=== PATIENT | male | born 1975 | race Caucasian/White ===

== ENCOUNTER 2021-05-06 12:14 | Emergency (ER) | payer BC ==
[2021-05-06] MEDS ORDERED: Amoxicillin/Clavulanate K 875-125 MG Tab PO ONE ×2 (12:15→14:27)
[2021-05-06 12:42] VITALS: BP 117/61; PULSE 96
--- NOTE | 2021-05-06 14:07 | EDM.PDOC ---
ED HPI GENERAL MEDICAL PROBLEM - General Chief Complaint: General Stated Complaint: COVID FOR 2 WEEKS Time Seen by Provider: 05/06/21 13:00 Source of Information: Reports: Patient, RN, RN Notes Reviewed History Limitations: Reports: No Limitations - History of Present Illness INITIAL COMMENTS - FREE TEXT/NARRATIVE: Gwyn is a 45 y/o male who presents to the ED via personal vehicle with complaints of weakness, fever, hemoptysis, and cough. The patient states he tested positive for COVID 10 days ago following symptoms that began 14 days ago. He notes he was feeling well the last few days, but then began to fever again. His TMax today was 101, he notes he last took acetaminophen an hour prior to his arrival to this facility. He denies chest pain, palpitations, shortness of breath, dyspepsia, nausea, vomiting, or diarrhea. Generalized Pain Score (Numeric/FACES): 5 - Related Data Allergies Allergy/AdvReac Type Severity Reaction Status Date / Time No Known Allergies Allergy Verified 05/07/21 10:49 Home Meds: Home Meds Zolpidem [Ambien] 10 mg PO BEDTIME PRN 02/25/14 [History] Amoxicillin/Potassium Clav [Augmentin 875-125 Tablet] 1 tab PO BID 05/07/21 [History] Azithromycin [Zithromax] 250 mg PO DAILY 05/07/21 [History] dexAMETHasone [Decadron] 6 mg PO DAILY #5 tablet 05/11/21 [Rx] Past Medical History - Past Health History Medical/Surgical History: Denies Medical/Surgical History HEENT History: Reports: None Cardiovascular History: Reports: None Respiratory History: Reports: None Gastrointestinal History: Reports: None Genitourinary History: Reports: None Musculoskeletal History: Reports: None Neurological History: Reports: None Psychiatric History: Reports: None Endocrine/Metabolic History: Reports: None Hematologic History: Reports: None Immunologic History: Reports: None Oncologic (Cancer) History: Reports: None Dermatologic History: Reports: None - Infectious Disease History Infectious Disease History: Reports: None - Past Surgical History Head Surgeries/Procedures: Reports: None Social & Family History - Family History Family Medical History: Unobtainable - Tobacco Use Tobacco Use Status *Q: Never Tobacco User - Caffeine Use Caffeine Use: Reports: None - Recreational Drug Use Recreational Drug Use: No - Living Situation & Occupation Living situation: Reports: , with Spouse Occupation: Employed ED ROS GENERAL - Review of Systems Review Of Systems: Comprehensive ROS is negative, except as noted in HPI. ED EXAM, GENERAL - Physical Exam Exam: See Below Exam Limited By: No Limitations General Appearance: Alert, Other (Ill-appearing male) Eye Exam: Bilateral Eye: EOMI, Normal Inspection, PERRL (3mm) Ears: Normal External Exam, Normal Canal, Hearing Grossly Normal, Normal TMs Ear Exam: Bilateral Ear: Auricle Normal, Canal Normal, TM normal Nose: Normal Inspection, Normal Mucosa, No Blood Throat/Mouth: Normal Inspection, Normal Oropharynx, Normal Voice, No Airway Compromise Head: Atraumatic, Normocephalic Neck: Normal Inspection, Supple, Non-Tender, Full Range of Motion Respiratory/Chest: No Respiratory Distress, Lungs Clear, Normal Breath Sounds, No Accessory Muscle Use, Chest Non-Tender, Rhonchi (Diffuse). No: Crackles, Rales, Wheezing Cardiovascular: Normal Peripheral Pulses, Regular Rate, Rhythm, No Edema, No Gallop, No JVD, No Murmur, No Rub Peripheral Pulses: 2+: Radial (L), Radial (R) GI/Abdominal: Normal Bowel Sounds, Soft, No Distention, No Abnormal Bruit, No Mass, Pelvis Stable (Male) Exam: Deferred Rectal (Males) Exam: Deferred Back Exam: Normal Inspection, Full Range of Motion Extremities: Normal Inspection, Normal Range of Motion, Non-Tender, No Pedal Edema, Normal Capillary Refill Neurological: Alert, Oriented, CN II-XII Intact, Normal Cognition, Normal Gait, No Motor/Sensory Deficits Psychiatric: Normal Affect, Normal Mood Skin Exam: Warm, Intact, No Rash, Diaphoretic, Erythema (Flushed cheeks, bilaterally). No: Cyanosis, Jaundice, Mottled, Pallor Course - Vital Signs Last Recorded V/S: Last Vital Signs Temp 102.9 F H 05/06/21 15:27 Pulse 96 05/06/21 12:39 Resp 20 05/06/21 12:39 BP 117/61 05/06/21 12:39 Pulse Ox 96 05/06/21 12:39 - Orders/Labs/Meds Labs: Laboratory Tests 05/06/21 05/06/21 05/06/21 Range/Units 13:42 13:42 13:42 WBC 26.2 H* (5.0-10.0) 10^3/uL RBC 5.29 (4.6-6.2) 10^6/uL Hgb 16.1 (14.0-18.0) g/dL Hct 46.4 (40.0-54.0) % MCV 87.7 (80-100) fL MCH 30.4 (27.0-34.0) pg MCHC 34.7 (33.0-35.0) g/dL Plt Count 168 (150-450) 10^3/uL Neut % (Auto) 86.1 H (42.2-75.2) % Lymph % (Auto) 4.0 L (20.5-50.1) % Rice % (Auto) 9.7 H (2-8) % Eos % (Auto) 0.1 L (1.0-3.0) % Baso % (Auto) 0.1 (0.0-1.0) % D-Dimer, Quantitative 142 (0-400) ng/mL Sodium 138 (136-145) mmol/L Potassium 3.8 (3.5-5.1) mmol/L Chloride 100 (98-107) mmol/L Carbon Dioxide 28 (21-32) mmol/L Anion Gap 13.8 H (7-13) mEq/L BUN 18 (7-18) mg/dL Creatinine 1.18 (0.70-1.30) mg/dL Est Cr Clr Drug Dosing TNP Estimated GFR (MDRD) > 60 BUN/Creatinine Ratio 15.3 (No establ ref range) Glucose 111 H (70-99) mg/dL Lactic Acid (0.4-2.0) mmol/L Calcium 9.2 (8.5-10.1) mg/dL Magnesium 1.7 L (1.8-2.4) mg/dL Total Bilirubin 0.7 (0.2-1.0) mg/dL AST 21 (15-37) U/L ALT 51 (16-63) U/L Alkaline Phosphatase 94 (46-116) U/L Troponin I High Sens 11 (<=76) pg/mL C-Reactive Protein 2.9 H (0.0-0.9) mg/dL Total Protein 7.7 (6.4-8.2) g/dL Albumin 4.0 (3.4-5.0) g/dL Globulin 3.7 Albumin/Globulin Ratio 1.1 05/06/21 Range/Units 13:42 WBC (5.0-10.0) 10^3/uL RBC (4.6-6.2) 10^6/uL Hgb (14.0-18.0) g/dL Hct (40.0-54.0) % MCV (80-100) fL MCH (27.0-34.0) pg MCHC (33.0-35.0) g/dL Plt Count (150-450) 10^3/uL Neut % (Auto) (42.2-75.2) % Lymph % (Auto) (20.5-50.1) % Rice % (Auto) (2-8) % Eos % (Auto) (1.0-3.0) % Baso % (Auto) (0.0-1.0) % D-Dimer, Quantitative (0-400) ng/mL Sodium (136-145) mmol/L Potassium (3.5-5.1) mmol/L Chloride (98-107) mmol/L Carbon Dioxide (21-32) mmol/L Anion Gap (7-13) mEq/L BUN (7-18) mg/dL Creatinine (0.70-1.30) mg/dL Est Cr Clr Drug Dosing Estimated GFR (MDRD) BUN/Creatinine Ratio (No establ ref range) Glucose (70-99) mg/dL Lactic Acid 2.4 H* (0.4-2.0) mmol/L Calcium (8.5-10.1) mg/dL Magnesium (1.8-2.4) mg/dL Total Bilirubin (0.2-1.0) mg/dL AST (15-37) U/L ALT (16-63) U/L Alkaline Phosphatase (46-116) U/L Troponin I High Sens (<=76) pg/mL C-Reactive Protein (0.0-0.9) mg/dL Total Protein (6.4-8.2) g/dL Albumin (3.4-5.0) g/dL Globulin Albumin/Globulin Ratio Meds: Medications Discontinued Medications Generic Name Dose Route Start Last Admin Trade Name Freq PRN Reason Stop Dose Admin Acetaminophen 1,000 mg 05/06/21 15:26 05/06/21 15:27 Acetaminophen 500 Mg Tab PO 05/06/21 15:27 1,000 mg ONETIME ONE Administration Acetaminophen Confirm 05/06/21 15:26 Acetaminophen 500 Mg Tab Administered 05/06/21 15:27 Dose 1,000 mg .ROUTE .STK-MED ONE Amoxicillin/Clavulanate Potassium 1 tab 05/06/21 14:27 05/06/21 15:27 Amoxicillin/Clavulanate K 875-125 Mg Tab PO 05/06/21 14:28 1 tab ONETIME ONE Administration Amoxicillin/Clavulanate Potassium Confirm 05/06/21 16:52 Amoxicillin/Clavulanate K 875-125 Mg Tab Administered 05/06/21 16:53 Dose 2 tab .ROUTE .STK-MED ONE Amoxicillin/Clavulanate Potassium 1 tab 05/06/21 12:15 Amoxicillin/Clavulanate K 875-125 Mg Tab PO 05/06/21 12:16 .STK-MED ONE Azithromycin 500 mg/ Sodium 250 mls @ 250 mls/hr 05/06/21 14:28 05/06/21 15:26 Chloride IV 05/06/21 15:27 250 mls/hr ONETIME ONE Administration - Radiology Interpretation Free Text/Narrative:: [facility] Final Radiology Report Call: [phone] assistance Online chat: [email or web address] Name: GWYN MURRAY Age: 45Years M Date: 05/06/2021 SSN: -- : [id number] Study: CR CHEST 1V FRONTAL Requesting Physician: Kathia Escalera Images: 1 Addl Studies: Provided Clinical History: COVID +; Crackles to bilateral lobes Contrast: Contrast Medium: Contrast Amount: Contrast Method: CONFIDENTIALITY STATEMENT This report is intended only for use by the referring physician, and only in accordance with law. If you received this in error, call [phone]. Page 1 of 1 PROCEDURE INFORMATION: Exam: XR Chest Exam date and time: 05/06/2021 1:35 PM Age: 45 years old Clinical indication: Other: Crackles to bilateral lobes; Additional info: Covid +; Crackles to bilateral lobes TECHNIQUE: Imaging protocol: XR of the chest. Views: 1 view. COMPARISON: CR Chest 1V Frontal 02/25/2014 11:53 AM FINDINGS: Lungs: When compared to the previous examination, there is slight increase in airspace opacity in the periphery of the right lower lobe and also patchy airspace opacity in the left lower lobe. Findings are concerning for possible early/mild atypical pneumonia. There is no pulmonary edema. Pleural spaces: Unremarkable. No pleural effusion. No pneumothorax. Heart/Mediastinum: Unremarkable. No cardiomegaly. Bones/joints: Unremarkable. IMPRESSION: Mild multifocal pneumonia. Consider viral etiology. Thank you for allowing us to participate in the care of your patient. Dictated and Authenticated by: Chidi Davila MD 05/06/2021 2:41 PM Central Time ([place] & [place]) - Re-Assessments/Exams Free Text/Narrative Re-Assessment/Exam: 05/06/21 CXR obtained. Labs pending. WBC 26, blood cultures drawn. D-dimer WNL. Azithromycin 500mg IVPB and Augmentin 875/125mg PO administered. Acetaminophen administered for fever. Findings of examination, imaging, and lab work reviewed with patient. Will treat pneumonia with azithromycin and Augmentin. Supportive cares for pneumonia discussed. Patient instructed to follow up with PCP regarding today's visit. Red flag signs and symptoms which would warrant immediate reevaluation reviewed. Patient verbalized understanding and agreement with the plan of care. Departure - Departure Time of Disposition: 16:45 Disposition: Home, Self-Care 01 Condition: Fair Clinical Impression: Pneumonia due to COVID-19 virus, Bacterial pneumonia, unspecified - Discharge Information *PRESCRIPTION DRUG MONITORING PROGRAM REVIEWED*: Not Applicable *COPY OF PRESCRIPTION DRUG MONITORING REPORT IN PATIENT SSUHMA: Not Applicable Instructions: Community-Acquired Pneumonia, Adult Referrals: PCP,None [Primary Care Provider] - Forms: ED Department Discharge Additional Instructions: Rx: Augmentin Rx: azithromycin 1.) Take all of your antibiotics until gone, even as symptoms improve. 2.) Refrain from returning to work until you are 24 hours fever free. 3.) You may take ibuprofen (Motrin/Advil) 400-800mg every six hours, as pain and swelling persist. You may also take acetaminophen (Tylenol) 650-1000mg every six hours, as pain persists. You may stagger these medications so you are taking a dose every three hours. 4.) Eat small, snack like meals to avoid nausea. 5.) Drink small, frequent sips of water to stay hydrated.
[2021-05-06 14:15] LABS: ANION GAP 13.8 mEq/L (7-13); CHLORIDE,CL 100 mmol/L (98-107); SODIUM,NA 138 mmol/L (136-145)
[2021-05-06] MEDS ORDERED: Azithromycin 500 MG in Sodium Chloride 0.9% 250 ML IV ONE (14:28)
--- NOTE | 2021-05-06 14:41 | CR ---
PROCEDURE INFORMATION: Exam: XR Chest Exam date and time: 05/06/2021 1:35 PM Age: 45 years old Clinical indication: Other: Crackles to bilateral lobes; Additional info: Covid +; Crackles to bilateral lobes TECHNIQUE: Imaging protocol: XR of the chest. Views: 1 view. COMPARISON: CR Chest 1V Frontal 02/25/2014 11:53 AM FINDINGS: Lungs: When compared to the previous examination, there is slight increase in airspace opacity in the periphery of the right lower lobe and also patchy airspace opacity in the left lower lobe. Findings are concerning for possible early/mild atypical pneumonia. There is no pulmonary edema. Pleural spaces: Unremarkable. No pleural effusion. No pneumothorax. Heart/Mediastinum: Unremarkable. No cardiomegaly. Bones/joints: Unremarkable. IMPRESSION: Mild multifocal pneumonia. Consider viral etiology.
[2021-05-06] MEDS ORDERED: Acetaminophen 500 MG Tab PO ONE (15:26)
[2021-05-06] MEDS ORDERED: Acetaminophen 500 MG Tab ONE (15:26)
[2021-05-06] MEDS ORDERED: Amoxicillin/Clavulanate K 875-125 MG Tab ONE (16:52)
--- NOTE | 2021-05-17 04:24 | PCM.SN.2 ---
- Free Text/Narrative Note: 05/06/21 [facility] notified via lab of anaerobic culture positive from gram positive clusters in pairs and chains. [facility] contacted patient who states he continued to fever through the night with continued feelings of malaise. Discussed findings of blood cultures and need for IV antibiotics. Case discussed with Dr. Greenfield who kindly accepted patient as direct admission. Patient again contacted by magazine writer to confirm plan of care. Patient to present to this facility for direct admission [facility]. Patient verbalized understanding and agreement with the plan of care. Time Documentation
== END 2021-05-06 16:59 | disposition home or self-care (01) ==
LOC: DL.ED 12:14
DX: U07.1 COVID-19 (principal); J15.9 Unspecified bacterial pneumonia
CPT/HCPCS: 36415; 71045; 80053; 83605; 83735; 84484; 85025; 85379; 86140; 87040; 87077; 87186; 99283; 99285; A9270; J0456; J7050

== ENCOUNTER 2021-05-07 07:36 | Inpatient (IN) | payer BC ==
--- NOTE | 2021-05-07 10:43 | PCM.HP ---
H&P History of Present Illness - General Date of Service: 05/07/21 Admit Problem/Dx: COVID-19 infection Source of Information: Patient, Old Records, Provider, RN Notes Reviewed History Limitations: Reports: No Limitations - History of Present Illness Initial Comments - Free Text/Narative: This is a 45-year-old with no significant past medical history except for insomnia who comes in as a direct admit after he was diagnosed with bacteremia from yesterday's visit in the emergency department. According to him, has been battling COVID-19 infection since and he turned positive on the . He had a brief episode wherein he got better. However a couple of days prior to his visit yesterday in the emergency department, he developed onset of fever associated with chills, chest discomfort, hemoptysis, productive cough, pleuritic pain, as well as generalized malaise and body aches. Yesterday, he received initial treatment and was discharged home with antibiotics. Unfortunately his blood culture came back positive for gram-positive organism. So far he has no active respiratory symptoms. He is satting well on room air. He does not look septic. To note, he is [id number] vaccinated. He denies smoking cigarettes or marijuana. He does not chew tobacco products. He endorses no electronic vaping. He denies using illicit drugs. And he denies alcohol use. - Related Data Allergies/Adverse Reactions: Allergies Allergy/AdvReac Type Severity Reaction Status Date / Time No Known Allergies Allergy Verified 05/07/21 10:49 Home Medications: Home Meds Zolpidem [Ambien] 10 mg PO BEDTIME PRN 02/25/14 [History] Amoxicillin/Potassium Clav [Augmentin 875-125 Tablet] 1 tab PO BID 05/07/21 [History] Azithromycin [Zithromax] 250 mg PO DAILY 05/07/21 [History] Past Medical History - Past Health History Medical/Surgical History: Denies Medical/Surgical History HEENT History: Reports: None Cardiovascular History: Reports: None Respiratory History: Reports: None Gastrointestinal History: Reports: None Genitourinary History: Reports: None Musculoskeletal History: Reports: None Neurological History: Reports: None Psychiatric History: Reports: None Endocrine/Metabolic History: Reports: None Hematologic History: Reports: None Immunologic History: Reports: None Oncologic (Cancer) History: Reports: None Dermatologic History: Reports: None - Infectious Disease History Infectious Disease History: Reports: None - Past Surgical History Head Surgeries/Procedures: Reports: None Social & Family History - Family History Family Medical History: Unobtainable - Caffeine Use Caffeine Use: Reports: None - Living Situation & Occupation Living situation: Reports: , with Spouse Occupation: Employed H&P Review of Systems - Review of Systems: Review Of Systems: See Below General: Reports: Fever, Chills, Malaise, Weakness. Denies: Fatigue HEENT: Reports: Ear Pain, Headaches. Denies: Contact Lenses, Dysphasia, Eye Pain, Rhinitis, Post Nasal Drip, Sinus Congestion, Sore Throat Pulmonary: Reports: Shortness of Breath, Pleuritic Chest Pain, Cough, Sputum, Hemoptysis. Denies: Wheezing Cardiovascular: Reports: Lightheadedness. Denies: Palpitations, Edema, Syncope, Claudication, Other Gastrointestinal: Denies: Abdominal Pain, Constipation, Diarrhea, Nausea, Vomiting Genitourinary: Denies: Frequency, Burning Musculoskeletal: Denies: Shoulder Pain, Joint Pain, Muscle Pain Skin: Denies: Jaundice, Rash Psychiatric: Denies: Depression, Anxiety, Agitation, Hallucinations, Hallucinations (Auditory) Neurological: Reports: Weakness. Denies: Dizziness, Seizure, Difficulty Walking Hematologic/Lymphatic: Reports: No Symptoms Immunologic: Reports: No Symptoms Exam - Exam Exam: See Below - Exam Quality Assessment: DVT Prophylaxis. No: Supplemental Oxygen, Urinary Catheter General: Alert, Oriented, Cooperative HEENT: Conjunctiva Clear, EOMI, Hearing Intact, Nares Patent, Normal Nasal Septum, Pupils Equal, Pupils Reactive Neck: Supple, Trachea Midline Lungs: Clear to Auscultation, Normal Respiratory Effort Cardiovascular: Regular Rate, Regular Rhythm GI/Abdominal Exam: Normal Bowel Sounds, Soft, Non-Tender, No Organomegaly, No Distention, No Abnormal Bruit, No Mass (Male) Exam: Deferred Rectal (Males) Exam: Deferred Back Exam: Normal Inspection, Full Range of Motion Extremities: Normal Inspection, Normal Range of Motion, Non-Tender, No Pedal Edema, Normal Capillary Refill Peripheral Pulses: 2+: Dorsalis Pedis (L), Dorsalis Pedis (R) Skin: Warm, Dry, Intact Neuro Extensive - Mental Status: Oriented x3, Normal Cognition, Memory Intact Neuro Extensive - Motor, Sensory, Reflexes: CN II-XII Intact, Normal Gait Psychiatric: Alert, Normal Affect, Normal Mood Problem List Initiated/Reviewed/Updated: Yes Assessment/Plan Comment:: This is a 45-year-old with no significant past medical history except for insomnia who comes in as a direct admit after he was diagnosed with bacteremia from yesterday's visit in the emergency department. Assessment: Acute: Worsening COVID-19 infection; onset of symptoms 04/22/2001/04/2021; officially diagnosed with COVID-19 on 04/26/2021 Viral pneumonitis versus atypical pneumonia; chest x-ray shows bilateral pneumonia taken yesterday in ED Intermittent fever and chills likely related to COVID-19 infection Bacteremia with preliminary blood culture showing gram-positive organism General aches and malaise Leukocytosis with WBC as high as 26.2 with neutrophils count of 86.1 taken in ED yesterday Hyperglycemia with glucose of 111, carries no history of diabetes or glucose intolerance Lactic acidosis with initial lactic acid of 2.4 taken taken in ED yesterday Elevated CRP of 2.9 taking in ED yesterday Hypomagnesemia with magnesium of 1.7 taken in ED yesterday Chronic: Insomnia Plan: Admit to the unit with COVID-19 isolation protocol UA and sputum culture if not already done Empiric IV antibiotic with IV Levaquin 750 mg daily Routine a.m. labs Inflammatory markers Monitor for electrolytes abnormality Electrolyte replacement protocol Flutter valve and incentive spirometry as directed As needed decongestant/Atrovent Accu-Check AC with insulin sliding scale for hyperglycemia due to steroid use Regular diet Resume home meds once verified Patient will not benefit with remdesivir at this point as he is 15 days into his symptoms Actemra infusion is not indicated as patient is satting on room air Repeat blood culture in 2 to 3 days PT/OT when appropriate RT to assess and treat DVT prophylaxis: Lovenox 40 mg subcu daily GI prophylaxis: H2 camron Goal of treatment: Resolution of bacteremia Length of stay: Likely 96 hours or less CODE STATUS is full Critical care time spent: 30 mins
[2021-05-07] MEDS ORDERED: Acetaminophen/HYDROcodone 325-10 MG Tab PO PRN (10:48)
[2021-05-07] MEDS ORDERED: Promethazine 25 MG/ML SDV IM PRN (10:48)
[2021-05-07] MEDS ORDERED: Polyethylene Glycol 3350 Powder 17 GM Packet PO PRN (10:48)
[2021-05-07] MEDS ORDERED: HYDROmorphone 0.5 MG/0.5 ML Syringe IVPUSH PRN (10:48)
[2021-05-07] MEDS ORDERED: Albuterol/Ipratropium 3.0-0.5 MG/3 ML Neb Soln NEB PRN (10:48)
[2021-05-07] MEDS ORDERED: Ondansetron 4 MG/2 ML SDV IVPUSH PRN (10:48)
[2021-05-07] MEDS ORDERED: guaiFENesin/Dextromethorphan 100-10 MG/5 ML Soln 5 ML Cup PO PRN (10:54)
[2021-05-07] MEDS ORDERED: Benzonatate 100 MG Cap PO PRN (11:02)
[2021-05-07] MEDS ORDERED: 50% Dextrose in Water 50 ML Syringe IVPUSH PRN (11:38)
[2021-05-07] MEDS ORDERED: Glucagon,Human Recombinant 1 MG Vial IM PRN (11:38)
[2021-05-07] MEDS ORDERED: Insulin Lispro 100 Units/ML 3 ML Vial SUBCUT PRN (11:38)
[2021-05-07] MEDS ORDERED: Dexamethasone 4 MG/ML SDV IVPUSH ONE (12:00)
[2021-05-07] MEDS: Levofloxacin/Dextrose 5%-Water 750 MG in Premix Bag 1 BAG IV SCH (12:03)
[2021-05-07] MEDS: Acetaminophen 325 MG Tab PO PRN (20:40)
[2021-05-07] MEDS: Zolpidem 5 MG Tab PO PRN (20:40)
[2021-05-08 07:05] LABS: ANION GAP 14.1 mEq/L (7-13); CHLORIDE,CL 105 mmol/L (98-107); SODIUM,NA 139 mmol/L (136-145)
--- NOTE | 2021-05-08 07:22 | PCM.PN ---
- General Info Date of Service: 05/08/21 Admission Dx/Problem (Free Text): COVID-19 infection Subjective Update: No overnight acute issues. He is relatively well and has no new complaints. He has been afebrile since admission. His WBC is now down to 22.6 with a neutrophils of 84.6%. His glucose now is anywhere between teens to 140s. His repeat CRP today is much better at 24.7 from 44.2 yesterday. Chest x-ray taken this morning was read as atelectasis and increased opacification in the lingula and left lower lobe suspicious for pneumonia but without acute pulmonary edema. Functional Status: Reports: Pain Controlled, Tolerating Diet, Ambulating, Urinating, Incentive Spirometry. Denies: New Symptoms - Review of Systems General: Denies: Fever, Weakness, Fatigue, Malaise HEENT: Denies: Contact Lenses Pulmonary: Denies: Shortness of Breath, Pleuritic Chest Pain, Cough, Sputum, Wheezing Cardiovascular: Denies: Chest Pain, Dyspnea on Exertion, Lightheadedness Gastrointestinal: Denies: Abdominal Pain, Nausea, Vomiting Genitourinary: Denies: Dysuria, Frequency, Urgency Musculoskeletal: Denies: Neck Pain Skin: Reports: No Symptoms Neurological: Reports: Weakness. Denies: Confusion, Dizziness, Seizure, Difficulty Walking, Gait Disturbance Psychiatric: Reports: No Symptoms. Denies: Confusion - Patient Data Vitals - Most Recent: Last Vital Signs Temp 36.9 C 05/08/21 04:00 Pulse 76 05/08/21 04:00 Resp 18 05/08/21 04:00 BP 128/75 05/08/21 04:00 Pulse Ox 96 05/08/21 04:00 Weight - Most Recent: 80.739 kg Lab Results Last 24 Hours: Laboratory Results - last 24 hr 05/07/21 05/07/21 05/07/21 Range/Units 11:58 12:16 12:16 WBC (5.0-10.0) 10^3/uL RBC (4.6-6.2) 10^6/uL Hgb (14.0-18.0) g/dL Hct (40.0-54.0) % MCV (80-100) fL MCH (27.0-34.0) pg MCHC (33.0-35.0) g/dL Plt Count (150-450) 10^3/uL Neut % (Auto) (42.2-75.2) % Lymph % (Auto) (20.5-50.1) % [place] % (Auto) (2-8) % Eos % (Auto) (1.0-3.0) % Baso % (Auto) (0.0-1.0) % Add Manual Diff ESR 36 H (0-15) mm/hr D-Dimer, Quantitative (0-400) ng/mL POC Glucose 89 (70-99) mg/dL Magnesium 2.2 (1.8-2.4) mg/dL Ferritin (26-388) mg/mL Lactate Dehydrogenase 155 (85-227) U/L C-Reactive Protein 44.2 H (0.0-0.9) mg/dL 05/07/21 05/07/21 05/07/21 Range/Units 12:16 12:16 17:15 WBC (5.0-10.0) 10^3/uL RBC (4.6-6.2) 10^6/uL Hgb (14.0-18.0) g/dL Hct (40.0-54.0) % MCV (80-100) fL MCH (27.0-34.0) pg MCHC (33.0-35.0) g/dL Plt Count (150-450) 10^3/uL Neut % (Auto) (42.2-75.2) % Lymph % (Auto) (20.5-50.1) % [place] % (Auto) (2-8) % Eos % (Auto) (1.0-3.0) % Baso % (Auto) (0.0-1.0) % Add Manual Diff ESR (0-15) mm/hr D-Dimer, Quantitative 392 (0-400) ng/mL POC Glucose 141 H (70-99) mg/dL Magnesium (1.8-2.4) mg/dL Ferritin 1191 H (26-388) mg/mL Lactate Dehydrogenase (85-227) U/L C-Reactive Protein (0.0-0.9) mg/dL 05/08/21 Range/Units 06:25 WBC 22.6 H (5.0-10.0) 10^3/uL RBC 4.78 (4.6-6.2) 10^6/uL Hgb 14.3 D (14.0-18.0) g/dL Hct 42.2 (40.0-54.0) % MCV 88.3 (80-100) fL MCH 29.9 (27.0-34.0) pg MCHC 33.9 (33.0-35.0) g/dL Plt Count 175 (150-450) 10^3/uL Neut % (Auto) 84.6 H (42.2-75.2) % Lymph % (Auto) 6.9 L (20.5-50.1) % [place] % (Auto) 8.4 H (2-8) % Eos % (Auto) 0.0 L (1.0-3.0) % Baso % (Auto) 0.1 (0.0-1.0) % Add Manual Diff Yes ESR (0-15) mm/hr D-Dimer, Quantitative (0-400) ng/mL POC Glucose (70-99) mg/dL Magnesium (1.8-2.4) mg/dL Ferritin (26-388) mg/mL Lactate Dehydrogenase (85-227) U/L C-Reactive Protein (0.0-0.9) mg/dL Med Orders - Current: Current Medications Acetaminophen (Acetaminophen 325 Mg Tab) 650 mg PO Q4H PRN PRN Reason: Pain (Mild 1-3)/fever Last Admin: 05/07/21 20:40 Dose: 650 mg Documented by: Hydrocodone Bitart/Acetaminophen (Acetaminophen/Hydrocodone 325-10 Mg Tab) 0.5 tab PO Q4H PRN PRN Reason: Pain (moderate 4-6) Albuterol/Ipratropium (Albuterol/Ipratropium 3.0-0.5 Mg/3 Ml Neb Soln) 3 ml NEB Q4H PRN PRN Reason: shortness of breath/wheezing Benzonatate (Benzonatate 100 Mg Cap) 100 mg PO Q8H PRN PRN Reason: Cough, use first Dexamethasone (Dexamethasone 2 Mg Tab) 6 mg PO DAILY MARLY Stop: 05/17/21 09:01 Dextrose/Water (50% Dextrose In Water 50 Ml Syringe) 50 ml IVPUSH Q15M PRN PRN Reason: Hypoglycemia Glucagon (Glucagon,Human Recombinant 1 Mg Vial) 1 mg IM Q15M PRN PRN Reason: Hypoglycemia Guaifenesin/Phenylephrine HCl (Guaifenesin/Dextromethorphan 100-10 Mg/5 Ml Soln 5 Ml Cup) 10 ml PO Q6H PRN PRN Reason: Cough, use second Hydromorphone HCl (Hydromorphone 0.5 Mg/0.5 Ml Syringe) 0.5 mg IVPUSH Q2H PRN PRN Reason: Pain (severe 7-10) Levofloxacin/Dextrose 750 mg/ (Premix) 150 mls @ 100 mls/hr IV Q24H MARLY Last Infusion: 05/07/21 13:52 Dose: Infused Documented by: Insulin Human Lispro (Insulin Lispro 100 Units/Ml 3 Ml Vial) 0 unit SUBCUT TIDMEALS PRN; Protocol PRN Reason: Hyperglycemia Ondansetron HCl (Ondansetron 4 Mg/2 Ml Sdv) 4 mg IVPUSH Q6H PRN PRN Reason: Nausea/Vomiting, use first Polyethylene Glycol (Polyethylene Glycol 3350 Powder 17 Gm Packet) 17 gm PO DAILY PRN PRN Reason: Constipation, USE FIRST Promethazine HCl (Promethazine 25 Mg/Ml Sdv) 12.5 mg IM Q6H PRN PRN Reason: Nausea/Vomiting, use second Senna/Docusate Sodium (Docusate Sodium/Sennosides 50-8.6 Mg Tab) 1 tab PO BEDTIME PRN PRN Reason: Constipation Zolpidem Tartrate (Zolpidem 5 Mg Tab) 5 mg PO BEDTIME PRN PRN Reason: Sleep Last Admin: 05/07/21 20:40 Dose: 5 mg Documented by: Discontinued Medications Dexamethasone (Dexamethasone 4 Mg/Ml Sdv) 6 mg IVPUSH ONETIME ONE Stop: 05/07/21 12:01 Last Admin: 05/07/21 12:52 Dose: 6 mg Documented by: - Exam Quality Assessment: No: Supplemental Oxygen, Urine Catheter General: Alert, Oriented, Cooperative, No Acute Distress HEENT: Pupils Equal, Pupils Reactive, EOMI, Mucous Membr. Moist/[place] Neck: Supple Lungs: Normal Respiratory Effort, Decreased Breath Sounds Cardiovascular: Regular Rate, Regular Rhythm GI/Abdominal Exam: Normal Bowel Sounds, Soft, Non-Tender, No Organomegaly, No Distention, No Abnormal Bruit, No Mass (Male) Exam: Deferred Back Exam: Normal Inspection, Full Range of Motion Extremities: Normal Inspection, Normal Range of Motion, Non-Tender, No Pedal Edema, Normal Capillary Refill Peripheral Pulses: 2+: Dorsalis Pedis (L), Dorsalis Pedis (R) Skin: Warm, Dry, Intact Neurological: No New Focal Deficit, Normal Gait Psy/Mental Status: Alert, Normal Affect, Normal Mood - Patient Data Lab Results Last 24 hrs: Laboratory Results - last 24 hr 05/07/21 05/07/21 05/07/21 Range/Units 11:58 12:16 12:16 WBC (5.0-10.0) 10^3/uL RBC (4.6-6.2) 10^6/uL Hgb (14.0-18.0) g/dL Hct (40.0-54.0) % MCV (80-100) fL MCH (27.0-34.0) pg MCHC (33.0-35.0) g/dL Plt Count (150-450) 10^3/uL Neut % (Auto) (42.2-75.2) % Lymph % (Auto) (20.5-50.1) % [place] % (Auto) (2-8) % Eos % (Auto) (1.0-3.0) % Baso % (Auto) (0.0-1.0) % Add Manual Diff ESR 36 H (0-15) mm/hr D-Dimer, Quantitative (0-400) ng/mL POC Glucose 89 (70-99) mg/dL Magnesium 2.2 (1.8-2.4) mg/dL Ferritin (26-388) mg/mL Lactate Dehydrogenase 155 (85-227) U/L C-Reactive Protein 44.2 H (0.0-0.9) mg/dL 05/07/21 05/07/21 05/07/21 Range/Units 12:16 12:16 17:15 WBC (5.0-10.0) 10^3/uL RBC (4.6-6.2) 10^6/uL Hgb (14.0-18.0) g/dL Hct (40.0-54.0) % MCV (80-100) fL MCH (27.0-34.0) pg MCHC (33.0-35.0) g/dL Plt Count (150-450) 10^3/uL Neut % (Auto) (42.2-75.2) % Lymph % (Auto) (20.5-50.1) % [place] % (Auto) (2-8) % Eos % (Auto) (1.0-3.0) % Baso % (Auto) (0.0-1.0) % Add Manual Diff ESR (0-15) mm/hr D-Dimer, Quantitative 392 (0-400) ng/mL POC Glucose 141 H (70-99) mg/dL Magnesium (1.8-2.4) mg/dL Ferritin 1191 H (26-388) mg/mL Lactate Dehydrogenase (85-227) U/L C-Reactive Protein (0.0-0.9) mg/dL 05/08/21 Range/Units 06:25 WBC 22.6 H (5.0-10.0) 10^3/uL RBC 4.78 (4.6-6.2) 10^6/uL Hgb 14.3 D (14.0-18.0) g/dL Hct 42.2 (40.0-54.0) % MCV 88.3 (80-100) fL MCH 29.9 (27.0-34.0) pg MCHC 33.9 (33.0-35.0) g/dL Plt Count 175 (150-450) 10^3/uL Neut % (Auto) 84.6 H (42.2-75.2) % Lymph % (Auto) 6.9 L (20.5-50.1) % [place] % (Auto) 8.4 H (2-8) % Eos % (Auto) 0.0 L (1.0-3.0) % Baso % (Auto) 0.1 (0.0-1.0) % Add Manual Diff Yes ESR (0-15) mm/hr D-Dimer, Quantitative (0-400) ng/mL POC Glucose (70-99) mg/dL Magnesium (1.8-2.4) mg/dL Ferritin (26-388) mg/mL Lactate Dehydrogenase (85-227) U/L C-Reactive Protein (0.0-0.9) mg/dL Result Diagrams: 05/08/21 06:25 05/08/21 06:25 Sepsis Event Note - Evaluation Sepsis Screening Result: No Definite Risk - Focused Exam Vital Signs: Vital Signs Temp Pulse Resp BP Pulse Ox 05/08/21 04:00 36.9 C 76 18 128/75 96 05/08/21 00:00 36.8 C 84 18 118/72 94 L 05/07/21 20:00 37.3 C 96 20 125/68 94 L - Problem List Review Problem List Initiated/Reviewed/Updated: Yes - My Orders Last 24 Hours: My Active Orders 05/07/21 10:48 Patient Status [ADT] Routine Blood Glucose Check, Bedside [RC] TIDMEALS Height and Weight [RC] DAILY Oxygen Therapy [RC] PRN Up ad Mari [RC] ASDIRECTED VTE/DVT Education [RC] Vital Signs [RC] 00,04,08,12,16,20 Consult to Case Management/Social Sciences Research Scientist [CONS] Routine OT Evaluation and Treatment [CONS] Routine PT Evaluation and Treatment [CONS] Routine Respiratory Care Assess and Treatment [CONS] Routine CULTURE SPUTUM + SMEAR [RM] Stat Acetaminophen [TylenoL] 650 mg PO Q4H PRN Acetaminophen/HYDROcodone [[place] 325-10 MG] 0.5 tab PO Q4H PRN Albuterol/Ipratropium [DuoNeb 3.0-0.5 MG/3 ML] 3 ml NEB Q4H PRN HYDROmorphone [Dilaudid] 0.5 mg IVPUSH Q2H PRN Ondansetron [Zofran] 4 mg IVPUSH Q6H PRN Promethazine [Phenergan] 12.5 mg IM Q6H PRN polyethylene glycoL 3350 [MiraLAX] 17 gm PO DAILY PRN Resuscitation Status Routine 05/07/21 10:49 Intake and Output [RC] QSHIFT Sequential Compression Device [OM.PC] Per Unit Routine 05/07/21 10:50 Antiembolic Devices [RC] RT Aerosol Therapy [RC] ASDIRECTED 05/07/21 10:53 Flutter Valve Therapy [RT Chest Physiotherapy] [RC] ASDIRECTED Incentive Spirometry [RT Incentive Spirometry] [RC] Q2HWA 05/07/21 10:54 Dextromethorphan/guaiFENesin [Robitussin DM] 10 ml PO Q6H PRN 05/07/21 11:02 Benzonatate [Tessalon Perles] 100 mg PO Q8H PRN 05/07/21 11:38 Dextrose 50% in Water 50 ml IVPUSH Q15M PRN Glucagon,Human Recombinant [GlucaGen] 1 mg IM Q15M PRN Insulin Lispro [HumaLOG] See Protocol SUBCUT TIDMEALS PRN 05/07/21 Lunch Regular Diet [DIET] Levofloxacin/Dextrose 5%-Water [Levaquin in D5W 750 MG/150 ML] 750 mg Premix Bag 1 bag IV Q24H 05/07/21 12:16 QUANTIFERON TB PLUS [REF] Stat 05/07/21 13:45 CULTURE URINE [RM] Stat 05/07/21 20:00 Docusate Sodium/Sennosides [Senna Plus] 1 tab PO BEDTIME PRN 05/07/21 21:00 Zolpidem [Ambien] 5 mg PO BEDTIME PRN 05/08/21 06:00 Chest 1V Frontal [CR] Stat 05/08/21 06:25 BASIC METABOLIC PANEL,BMP [CHEM] AM C-REACTIVE PROTEIN [CHEM] Routine CBC WITH AUTO DIFF [HEME] AM MAGNESIUM [CHEM] AM MANUAL DIFFERENTIAL QA/NC [HEME] Routine 05/08/21 09:00 dexAMETHasone 6 mg PO DAILY 05/09/21 05:00 C-REACTIVE PROTEIN [REF] DAILY DD [D-DIMER QUANTITATIVE] [COAG] Routine FERRITIN [CHEM] Routine 05/09/21 05:11 BASIC METABOLIC PANEL,BMP [CHEM] AM CBC WITH AUTO DIFF [HEME] AM MAGNESIUM [CHEM] AM 05/10/21 05:00 C-REACTIVE PROTEIN [REF] DAILY 05/10/21 05:11 BASIC METABOLIC PANEL,BMP [CHEM] AM CBC WITH AUTO DIFF [HEME] AM MAGNESIUM [CHEM] AM 05/11/21 05:00 C-REACTIVE PROTEIN [REF] DAILY 05/11/21 05:11 BASIC METABOLIC PANEL,BMP [CHEM] AM CBC WITH AUTO DIFF [HEME] AM MAGNESIUM [CHEM] AM 05/12/21 05:00 C-REACTIVE PROTEIN [REF] DAILY 05/12/21 05:11 BASIC METABOLIC PANEL,BMP [CHEM] AM CBC WITH AUTO DIFF [HEME] AM MAGNESIUM [CHEM] AM 05/13/21 05:00 C-REACTIVE PROTEIN [REF] DAILY 05/13/21 05:11 BASIC METABOLIC PANEL,BMP [CHEM] AM CBC WITH AUTO DIFF [HEME] AM MAGNESIUM [CHEM] AM 05/14/21 05:00 C-REACTIVE PROTEIN [REF] DAILY 05/14/21 05:11 BASIC METABOLIC PANEL,BMP [CHEM] AM CBC WITH AUTO DIFF [HEME] AM MAGNESIUM [CHEM] AM - Assessment Assessment:: This is a 45-year-old with no significant past medical history except for insomnia who comes in as a direct admit after he was diagnosed with bacteremia from yesterday's visit in the emergency department. Assessment: Acute: Worsening COVID-19 infection; onset of symptoms 04/22/2001/04/2021; officially diagnosed with COVID-19 on 04/26/2021 Viral pneumonitis versus atypical pneumonia; chest x-ray shows bilateral pneumonia taken yesterday in ED; repeat chest x-ray today shows no worsening of pneumonia Bacteremia with preliminary blood culture showing gram-positive organism General aches and malaise improved Leukocytosis with WBC as high as 26.2 with neutrophils count of 86.1 taken in ED yesterday; improved at 22.6 Hyperglycemia with glucose of 111, carries no history of diabetes or glucose intolerance; now in the low teens to 140s Elevated CRP of 2.9 taking in ED; 44.2 yesterday now much improved at 24.7 Resolved: Intermittent fever and chills likely related to COVID-19 infection Lactic acidosis with initial lactic acid of 2.4 taken taken in ED yesterday Hypomagnesemia with magnesium of 1.7 taken in ED yesterday Chronic: Insomnia - Plan Plan:: Plan: Admit to the unit with COVID-19 isolation protocol Continue empiric IV antibiotic with IV Levaquin 750 mg daily Continue routine a.m. labs and inflammatory markers Monitor for electrolytes abnormality Electrolyte replacement protocol Flutter valve and incentive spirometry as directed As needed decongestant/Atrovent Accu-Check AC with insulin sliding scale for hyperglycemia due to steroid use Regular diet Repeat blood culture tomorrow RT to assess and treat DVT prophylaxis: Lovenox 40 mg subcu daily GI prophylaxis: H2 camron Goal of treatment: Resolution of bacteremia Length of stay: Likely 96 hours (Friday) Critical care time spent: 25 mins
[2021-05-08] MEDS: Dexamethasone 2 MG Tab PO SCH (08:02)
--- NOTE | 2021-05-08 09:09 | CR ---
PROCEDURE INFORMATION: Exam: XR Chest Exam date and time: 05/08/2021 8:04 AM Age: 45 years old Clinical indication: Shortness of breath and other: Covid-19 TECHNIQUE: Imaging protocol: XR of the chest. Views: 1 view. COMPARISON: AP chest 02/25/2014 CR Chest 1V Frontal 05/06/2021 1:35 PM FINDINGS: Lungs: Subsegmental atelectasis in right middle lobe and lingula. Asymmetric airspace opacification in lingula and possibly left lower lobe. Pleural spaces: Normal. Heart/Mediastinum: Normal heart and cardio-mediastinal silhouette. Vasculature: Normal pulmonary vessels and width of the vascular pedicle. Bones/joints: Intact and normally aligned. No suspicious lesion. IMPRESSION: Atelectasis and increased opacification in the lingula and left lower lobe suspicious for pneumonia. No acute pulmonary edema.
[2021-05-08] MEDS: Levofloxacin/Dextrose 5%-Water 750 MG in Premix Bag 1 BAG IV SCH (12:21)
[2021-05-08] MEDS: Zolpidem 5 MG Tab PO PRN (21:29)
[2021-05-08] MEDS: Acetaminophen 325 MG Tab PO PRN (21:29)
--- NOTE | 2021-05-09 07:08 | PCM.PN ---
- General Info Date of Service: 05/09/21 Admission Dx/Problem (Free Text): COVID-19 infection Subjective Update: He has an uneventful night. He feels. He reports no fever or chills. No shortness of breath but he still has occasional blood-tinged sputum. Became he is satting adequately on room air. His WBC is now down to 20.5 with neutrophils of 83.7%. His D-dimer is slightly up today at 775. His glucose is now in the teens. His ferritin is elevated at 08/20/2010 with a much improved CRP level of 10.1 from 24.7 yesterday. Vitals were otherwise stable. He has no other acute issues or complaints this morning. Functional Status: Reports: Pain Controlled, Tolerating Diet, Ambulating, Urinating, Incentive Spirometry. Denies: New Symptoms - Review of Systems General: Denies: Fever, Weakness, Fatigue, Malaise, Chills HEENT: Denies: Contact Lenses Pulmonary: Reports: Cough, Sputum, Wheezing. Denies: Shortness of Breath, Pleuritic Chest Pain, Hemoptysis Cardiovascular: Denies: Chest Pain, Palpitations, Dyspnea on Exertion, Edema, Lightheadedness Gastrointestinal: Reports: Nausea. Denies: Abdominal Pain, Vomiting Genitourinary: Reports: Dysuria. Denies: Frequency, Burning, Urgency Musculoskeletal: Reports: Joint Pain. Denies: Back Pain Skin: Reports: Bruising. Denies: Pruritis, Rash Neurological: Reports: Gait Disturbance. Denies: Confusion, Seizure, Difficulty Walking, Weakness Psychiatric: Denies: Depression, Anxiety, Agitation, Hallucinations, Suicidal Ideation, Homicidal Ideation - Patient Data Vitals - Most Recent: Last Vital Signs Temp 37.3 C 05/09/21 00:00 Pulse 76 05/09/21 00:00 Resp 16 05/09/21 00:00 BP 125/72 05/09/21 00:00 Pulse Ox 100 05/09/21 00:00 Weight - Most Recent: 80.377 kg I&O - Last 24 Hours: Intake & Output 05/08/21 05/09/21 05/09/21 22:59 06:59 14:59 Intake Total 500 100 Balance 500 100 Lab Results Last 24 Hours: Laboratory Results - last 24 hr 05/08/21 05/08/21 05/08/21 Range/Units 06:25 06:25 07:59 WBC (5.0-10.0) 10^3/uL RBC (4.6-6.2) 10^6/uL Hgb (14.0-18.0) g/dL Hct (40.0-54.0) % MCV (80-100) fL MCH (27.0-34.0) pg MCHC (33.0-35.0) g/dL Plt Count (150-450) 10^3/uL Neut % (Auto) (42.2-75.2) % Lymph % (Auto) (20.5-50.1) % [place] % (Auto) (2-8) % Eos % (Auto) (1.0-3.0) % Baso % (Auto) (0.0-1.0) % Neutrophils % (Manual) 78 H (42-75) % Band Neutrophils % 8 % Lymphocytes % (Manual) 7 L (20-50) % Monocytes % (Manual) 7 (2-8) % Sodium 139 (136-145) mmol/L Potassium 4.1 (3.5-5.1) mmol/L Chloride 105 (98-107) mmol/L Carbon Dioxide 24 (21-32) mmol/L Anion Gap 14.1 H (7-13) mEq/L BUN 11 (7-18) mg/dL Creatinine 0.79 (0.70-1.30) mg/dL Est Cr Clr Drug Dosing 112.72 mL/min Estimated GFR (MDRD) > 60 Glucose 140 H (70-99) mg/dL POC Glucose 113 H (70-99) mg/dL Calcium 8.9 (8.5-10.1) mg/dL Magnesium 2.0 (1.8-2.4) mg/dL C-Reactive Protein 24.7 H (0.0-0.9) mg/dL 05/08/21 05/08/21 05/09/21 Range/Units 12:12 17:01 06:35 WBC 20.5 H (5.0-10.0) 10^3/uL RBC 4.96 (4.6-6.2) 10^6/uL Hgb 14.8 (14.0-18.0) g/dL Hct 43.7 (40.0-54.0) % MCV 88.1 (80-100) fL MCH 29.8 (27.0-34.0) pg MCHC 33.9 (33.0-35.0) g/dL Plt Count 222 (150-450) 10^3/uL Neut % (Auto) 83.7 H (42.2-75.2) % Lymph % (Auto) 9.4 L (20.5-50.1) % [place] % (Auto) 6.8 (2-8) % Eos % (Auto) 0.0 L (1.0-3.0) % Baso % (Auto) 0.1 (0.0-1.0) % Neutrophils % (Manual) (42-75) % Band Neutrophils % % Lymphocytes % (Manual) (20-50) % Monocytes % (Manual) (2-8) % Sodium (136-145) mmol/L Potassium (3.5-5.1) mmol/L Chloride (98-107) mmol/L Carbon Dioxide (21-32) mmol/L Anion Gap (7-13) mEq/L BUN (7-18) mg/dL Creatinine (0.70-1.30) mg/dL Est Cr Clr Drug Dosing mL/min Estimated GFR (MDRD) Glucose (70-99) mg/dL POC Glucose 124 H 150 H (70-99) mg/dL Calcium (8.5-10.1) mg/dL Magnesium (1.8-2.4) mg/dL C-Reactive Protein (0.0-0.9) mg/dL [place] Results Last 24 Hours: Microbiology 05/07/21 13:45 Urine Culture - Final Urine, Clean Catch NO GROWTH AFTER 2 DAYS Med Orders - Current: Current Medications Acetaminophen (Acetaminophen 325 Mg Tab) 650 mg PO Q4H PRN PRN Reason: Pain (Mild 1-3)/fever Last Admin: 05/08/21 21:29 Dose: 650 mg Documented by: Hydrocodone Bitart/Acetaminophen (Acetaminophen/Hydrocodone 325-10 Mg Tab) 0.5 tab PO Q4H PRN PRN Reason: Pain (moderate 4-6) Albuterol/Ipratropium (Albuterol/Ipratropium 3.0-0.5 Mg/3 Ml Neb Soln) 3 ml NEB Q4H PRN PRN Reason: shortness of breath/wheezing Benzonatate (Benzonatate 100 Mg Cap) 100 mg PO Q8H PRN PRN Reason: Cough, use first Dexamethasone (Dexamethasone 2 Mg Tab) 6 mg PO DAILY MARLY Stop: 05/17/21 09:01 Last Admin: 05/08/21 08:02 Dose: 6 mg Documented by: Dextrose/Water (50% Dextrose In Water 50 Ml Syringe) 50 ml IVPUSH Q15M PRN PRN Reason: Hypoglycemia Glucagon (Glucagon,Human Recombinant 1 Mg Vial) 1 mg IM Q15M PRN PRN Reason: Hypoglycemia Guaifenesin/Phenylephrine HCl (Guaifenesin/Dextromethorphan 100-10 Mg/5 Ml Soln 5 Ml Cup) 10 ml PO Q6H PRN PRN Reason: Cough, use second Hydromorphone HCl (Hydromorphone 0.5 Mg/0.5 Ml Syringe) 0.5 mg IVPUSH Q2H PRN PRN Reason: Pain (severe 7-10) Levofloxacin/Dextrose 750 mg/ (Premix) 150 mls @ 100 mls/hr IV Q24H [facility] Last Admin: 05/08/21 12:21 Dose: 100 mls/hr Documented by: Insulin Human Lispro (Insulin Lispro 100 Units/Ml 3 Ml Vial) 0 unit SUBCUT TIDMEALS PRN; Protocol PRN Reason: Hyperglycemia Ondansetron HCl (Ondansetron 4 Mg/2 Ml Sdv) 4 mg IVPUSH Q6H PRN PRN Reason: Nausea/Vomiting, use first Polyethylene Glycol (Polyethylene Glycol 3350 Powder 17 Gm Packet) 17 gm PO DAILY PRN PRN Reason: Constipation, USE FIRST Promethazine HCl (Promethazine 25 Mg/Ml Sdv) 12.5 mg IM Q6H PRN PRN Reason: Nausea/Vomiting, use second Senna/Docusate Sodium (Docusate Sodium/Sennosides 50-8.6 Mg Tab) 1 tab PO BEDTIME PRN PRN Reason: Constipation Zolpidem Tartrate (Zolpidem 5 Mg Tab) 5 mg PO BEDTIME PRN PRN Reason: Sleep Last Admin: 05/08/21 21:29 Dose: 5 mg Documented by: Discontinued Medications Dexamethasone (Dexamethasone 4 Mg/Ml Sdv) 6 mg IVPUSH ONETIME ONE Stop: 05/07/21 12:01 Last Admin: 05/07/21 12:52 Dose: 6 mg Documented by: - Exam Quality Assessment: DVT Prophylaxis. No: Supplemental Oxygen, Urine Catheter General: Alert, Oriented, Cooperative, No Acute Distress HEENT: Pupils Equal, Pupils Reactive, EOMI, Mucous Membr. Moist/[place] Neck: Supple Lungs: Clear to Auscultation, Normal Respiratory Effort Cardiovascular: Regular Rate, Regular Rhythm GI/Abdominal Exam: Normal Bowel Sounds, Soft, Non-Tender, No Organomegaly, No Distention, No Abnormal Bruit (Male) Exam: Deferred Back Exam: Normal Inspection, Full Range of Motion Extremities: Normal Inspection, Normal Range of Motion, Non-Tender, No Pedal Edema, Normal Capillary Refill Peripheral Pulses: 2+: Dorsalis Pedis (L), Dorsalis Pedis (R) Skin: Warm, Dry, Intact Neurological: No New Focal Deficit, Normal Gait, Normal Speech Psy/Mental Status: Alert, Normal Affect, Normal Mood - Patient Data Lab Results Last 24 hrs: Laboratory Results - last 24 hr 05/08/21 05/08/21 05/08/21 Range/Units 06:25 06:25 07:59 WBC (5.0-10.0) 10^3/uL RBC (4.6-6.2) 10^6/uL Hgb (14.0-18.0) g/dL Hct (40.0-54.0) % MCV (80-100) fL MCH (27.0-34.0) pg MCHC (33.0-35.0) g/dL Plt Count (150-450) 10^3/uL Neut % (Auto) (42.2-75.2) % Lymph % (Auto) (20.5-50.1) % [place] % (Auto) (2-8) % Eos % (Auto) (1.0-3.0) % Baso % (Auto) (0.0-1.0) % Neutrophils % (Manual) 78 H (42-75) % Band Neutrophils % 8 % Lymphocytes % (Manual) 7 L (20-50) % Monocytes % (Manual) 7 (2-8) % Sodium 139 (136-145) mmol/L Potassium 4.1 (3.5-5.1) mmol/L Chloride 105 (98-107) mmol/L Carbon Dioxide 24 (21-32) mmol/L Anion Gap 14.1 H (7-13) mEq/L BUN 11 (7-18) mg/dL Creatinine 0.79 (0.70-1.30) mg/dL Est Cr Clr Drug Dosing 112.72 mL/min Estimated GFR (MDRD) > 60 Glucose 140 H (70-99) mg/dL POC Glucose 113 H (70-99) mg/dL Calcium 8.9 (8.5-10.1) mg/dL Magnesium 2.0 (1.8-2.4) mg/dL C-Reactive Protein 24.7 H (0.0-0.9) mg/dL 05/08/21 05/08/21 05/09/21 Range/Units 12:12 17:01 06:35 WBC 20.5 H (5.0-10.0) 10^3/uL RBC 4.96 (4.6-6.2) 10^6/uL Hgb 14.8 (14.0-18.0) g/dL Hct 43.7 (40.0-54.0) % MCV 88.1 (80-100) fL MCH 29.8 (27.0-34.0) pg MCHC 33.9 (33.0-35.0) g/dL Plt Count 222 (150-450) 10^3/uL Neut % (Auto) 83.7 H (42.2-75.2) % Lymph % (Auto) 9.4 L (20.5-50.1) % [place] % (Auto) 6.8 (2-8) % Eos % (Auto) 0.0 L (1.0-3.0) % Baso % (Auto) 0.1 (0.0-1.0) % Neutrophils % (Manual) (42-75) % Band Neutrophils % % Lymphocytes % (Manual) (20-50) % Monocytes % (Manual) (2-8) % Sodium (136-145) mmol/L Potassium (3.5-5.1) mmol/L Chloride (98-107) mmol/L Carbon Dioxide (21-32) mmol/L Anion Gap (7-13) mEq/L BUN (7-18) mg/dL Creatinine (0.70-1.30) mg/dL Est Cr Clr Drug Dosing mL/min Estimated GFR (MDRD) Glucose (70-99) mg/dL POC Glucose 124 H 150 H (70-99) mg/dL Calcium (8.5-10.1) mg/dL Magnesium (1.8-2.4) mg/dL C-Reactive Protein (0.0-0.9) mg/dL Result Diagrams: 05/10/21 06:10 05/10/21 06:10 [place] Results Last 24 hrs: Microbiology 05/07/21 13:45 Urine Culture - Final Urine, Clean Catch NO GROWTH AFTER 2 DAYS Sepsis Event Note - Evaluation Sepsis Screening Result: No Definite Risk - Focused Exam Vital Signs: Vital Signs Temp Pulse Resp BP Pulse Ox 05/09/21 00:00 37.3 C 76 16 125/72 100 05/08/21 20:00 37.1 C 64 18 132/70 95 - Problem List Review Problem List Initiated/Reviewed/Updated: Yes - My Orders Last 24 Hours: My Active Orders 05/08/21 09:00 dexAMETHasone 6 mg PO DAILY 05/09/21 05:11 Blood Culture x2 Reflex Set [OM.PC] PER UNIT ROUTINE 05/09/21 06:35 BASIC METABOLIC PANEL,BMP [CHEM] AM C-REACTIVE PROTEIN [CHEM] Routine CULTURE BLOOD [BC] Routine CULTURE BLOOD [BC] Routine DD [D-DIMER QUANTITATIVE] [COAG] Routine FERRITIN [CHEM] Routine MAGNESIUM [CHEM] AM 05/10/21 05:00 C-REACTIVE PROTEIN [REF] DAILY 05/10/21 05:11 BASIC METABOLIC PANEL,BMP [CHEM] AM CBC WITH AUTO DIFF [HEME] AM MAGNESIUM [CHEM] AM 05/11/21 05:00 C-REACTIVE PROTEIN [REF] DAILY 05/11/21 05:11 BASIC METABOLIC PANEL,BMP [CHEM] AM CBC WITH AUTO DIFF [HEME] AM MAGNESIUM [CHEM] AM 05/12/21 05:00 C-REACTIVE PROTEIN [REF] DAILY 05/12/21 05:11 BASIC METABOLIC PANEL,BMP [CHEM] AM CBC WITH AUTO DIFF [HEME] AM MAGNESIUM [CHEM] AM 05/13/21 05:00 C-REACTIVE PROTEIN [REF] DAILY 05/13/21 05:11 BASIC METABOLIC PANEL,BMP [CHEM] AM CBC WITH AUTO DIFF [HEME] AM MAGNESIUM [CHEM] AM 05/14/21 05:00 C-REACTIVE PROTEIN [REF] DAILY 05/14/21 05:11 BASIC METABOLIC PANEL,BMP [CHEM] AM CBC WITH AUTO DIFF [HEME] AM MAGNESIUM [CHEM] AM - Assessment Assessment:: This is a 45-year-old with no significant past medical history except for insomnia who comes in as a direct admit after he was diagnosed with bacteremia from yesterday's visit in the emergency department. Assessment: Acute: Worsening COVID-19 infection; onset of symptoms 04/22/2001/04/2021; officially diagnosed with COVID-19 on 04/26/2021 Viral pneumonitis versus atypical pneumonia; chest x-ray shows bilateral pneumonia taken yesterday in ED; repeat chest x-ray taken on 05/08/2021 shows no worsening of pneumonia Bacteremia with preliminary blood culture showing gram-positive organism Leukocytosis with WBC as high as 26.2 with neutrophils count of 86.1 taken in ED yesterday; continues to improve now with WBC at 12.5 and neutrophils count of 83.7% Hyperglycemia with glucose of 111, carries no history of diabetes or glucose intolerance; now in the low to mid teens Elevated CRP of 44.2, yesterday 24.7; continues to improve now at 10.1 Resolved: Intermittent fever and chills likely related to COVID-19 infection Lactic acidosis with initial lactic acid of 2.4 taken taken in ED yesterday Hypomagnesemia with magnesium of 1.7 taken in ED yesterday General aches and malaise Chronic: Insomnia - Plan Plan:: Plan: Continue current treatment with IV 750 mg Levaquin day #3 Continue routine a.m. labs and inflammatory markers Monitor for electrolytes abnormality Electrolyte replacement protocol Flutter valve and incentive spirometry as directed As needed decongestant/Atrovent Accu-Check AC with insulin sliding scale for hyperglycemia due to steroid use Regular diet Repeat blood culture today RT to assess and treat DVT prophylaxis: Lovenox 40 mg subcu daily GI prophylaxis: H2 camron Goal of treatment: Resolution of bacteremia Transfer to medical floor Prognosis is good Length of stay: Likely 96 hours (Friday)
[2021-05-09 07:12] LABS: ANION GAP 14.2 mEq/L (7-13); CHLORIDE,CL 103 mmol/L (98-107); SODIUM,NA 139 mmol/L (136-145)
[2021-05-09] MEDS: Dexamethasone 2 MG Tab PO SCH (10:06)
[2021-05-09] MEDS: Enoxaparin 40 MG/0.4 ML Syringe SUBCUT SCH (10:07)
[2021-05-09] MEDS: Levofloxacin/Dextrose 5%-Water 750 MG in Premix Bag 1 BAG IV SCH (12:39)
[2021-05-09] MEDS: Acetaminophen 325 MG Tab PO PRN (21:02)
[2021-05-09] MEDS: Zolpidem 5 MG Tab PO PRN (21:04)
--- NOTE | 2021-05-10 07:02 | PCM.PN ---
- General Info Date of Service: 05/10/21 Admission Dx/Problem (Free Text): COVID-19 infection Subjective Update: He continues to feel better. However last night he had an episode when he had night sweats. He remained symptomatic satting adequately. He is coughing up less phlegm and now with blood-tinged sputum. He is afebrile. His WBC slightly down to 19.7 with neutrophils of 79.4%. His glucose is down into the low low 100s. His CRP is much improved to 4.2 from 44.2 on admission. So far his repeat blood cultures in 24 hours. Functional Status: Reports: Pain Controlled, Tolerating Diet, Ambulating, Urinating, Incentive Spirometry. Denies: New Symptoms - Review of Systems General: Denies: Fever, Weakness, Fatigue, Malaise, Chills HEENT: Denies: Contact Lenses Pulmonary: Reports: Cough, Sputum. Denies: Shortness of Breath Cardiovascular: Denies: Chest Pain, Dyspnea on Exertion, Lightheadedness Gastrointestinal: Denies: Abdominal Pain, Nausea, Vomiting Genitourinary: Denies: Frequency, Burning Musculoskeletal: Denies: Neck Pain, Arm Pain, Back Pain, Joint Pain Skin: Denies: Bruising, Pruritis, Rash Neurological: Denies: Confusion, Difficulty Walking, Weakness, Gait Disturbance Psychiatric: Denies: Depression, Anxiety, Hallucinations, Homicidal Ideation - Patient Data Vitals - Most Recent: Last Vital Signs Temp 36.5 C 05/10/21 04:00 Pulse 61 05/10/21 04:00 Resp 18 05/10/21 04:00 BP 123/85 05/10/21 04:00 Pulse Ox 98 05/10/21 04:00 Weight - Most Recent: 80.377 kg I&O - Last 24 Hours: Intake & Output 05/09/21 05/10/21 05/10/21 22:59 06:59 14:59 Intake Total 510 100 Balance 510 100 Lab Results Last 24 Hours: Laboratory Results - last 24 hr 05/09/21 05/09/21 05/09/21 Range/Units 06:35 06:35 06:35 WBC 20.5 H (5.0-10.0) 10^3/uL RBC 4.96 (4.6-6.2) 10^6/uL Hgb 14.8 (14.0-18.0) g/dL Hct 43.7 (40.0-54.0) % MCV 88.1 (80-100) fL MCH 29.8 (27.0-34.0) pg MCHC 33.9 (33.0-35.0) g/dL Plt Count 222 (150-450) 10^3/uL Neut % (Auto) 83.7 H (42.2-75.2) % Lymph % (Auto) 9.4 L (20.5-50.1) % [place] % (Auto) 6.8 (2-8) % Eos % (Auto) 0.0 L (1.0-3.0) % Baso % (Auto) 0.1 (0.0-1.0) % D-Dimer, Quantitative 775 H (0-400) ng/mL Sodium 139 (136-145) mmol/L Potassium 4.2 (3.5-5.1) mmol/L Chloride 103 (98-107) mmol/L Carbon Dioxide 26 (21-32) mmol/L Anion Gap 14.2 H (7-13) mEq/L BUN 14 (7-18) mg/dL Creatinine 0.76 (0.70-1.30) mg/dL Est Cr Clr Drug Dosing 117.17 mL/min Estimated GFR (MDRD) > 60 Glucose 117 H (70-99) mg/dL POC Glucose (70-99) mg/dL Calcium 9.1 (8.5-10.1) mg/dL Magnesium 1.9 (1.8-2.4) mg/dL Ferritin (26-388) mg/mL C-Reactive Protein 10.1 H (0.0-0.9) mg/dL 05/09/21 05/09/21 05/09/21 Range/Units 06:35 07:30 12:01 WBC (5.0-10.0) 10^3/uL RBC (4.6-6.2) 10^6/uL Hgb (14.0-18.0) g/dL Hct (40.0-54.0) % MCV (80-100) fL MCH (27.0-34.0) pg MCHC (33.0-35.0) g/dL Plt Count (150-450) 10^3/uL Neut % (Auto) (42.2-75.2) % Lymph % (Auto) (20.5-50.1) % [place] % (Auto) (2-8) % Eos % (Auto) (1.0-3.0) % Baso % (Auto) (0.0-1.0) % D-Dimer, Quantitative (0-400) ng/mL Sodium (136-145) mmol/L Potassium (3.5-5.1) mmol/L Chloride (98-107) mmol/L Carbon Dioxide (21-32) mmol/L Anion Gap (7-13) mEq/L BUN (7-18) mg/dL Creatinine (0.70-1.30) mg/dL Est Cr Clr Drug Dosing mL/min Estimated GFR (MDRD) Glucose (70-99) mg/dL POC Glucose 112 H 129 H (70-99) mg/dL Calcium (8.5-10.1) mg/dL Magnesium (1.8-2.4) mg/dL Ferritin 1311 H (26-388) mg/mL C-Reactive Protein (0.0-0.9) mg/dL 05/09/21 Range/Units 16:42 WBC (5.0-10.0) 10^3/uL RBC (4.6-6.2) 10^6/uL Hgb (14.0-18.0) g/dL Hct (40.0-54.0) % MCV (80-100) fL MCH (27.0-34.0) pg MCHC (33.0-35.0) g/dL Plt Count (150-450) 10^3/uL Neut % (Auto) (42.2-75.2) % Lymph % (Auto) (20.5-50.1) % [place] % (Auto) (2-8) % Eos % (Auto) (1.0-3.0) % Baso % (Auto) (0.0-1.0) % D-Dimer, Quantitative (0-400) ng/mL Sodium (136-145) mmol/L Potassium (3.5-5.1) mmol/L Chloride (98-107) mmol/L Carbon Dioxide (21-32) mmol/L Anion Gap (7-13) mEq/L BUN (7-18) mg/dL Creatinine (0.70-1.30) mg/dL Est Cr Clr Drug Dosing mL/min Estimated GFR (MDRD) Glucose (70-99) mg/dL POC Glucose 132 H (70-99) mg/dL Calcium (8.5-10.1) mg/dL Magnesium (1.8-2.4) mg/dL Ferritin (26-388) mg/mL C-Reactive Protein (0.0-0.9) mg/dL [place] Results Last 24 Hours: Microbiology 05/09/21 06:35 Aerobic Blood Culture - Preliminary Blood - Arm, Right NO GROWTH AFTER 1 DAY Anaerobic Blood Culture - Preliminary NO GROWTH AFTER 1 DAY 05/09/21 06:35 Aerobic Blood Culture - Preliminary Blood - Arm, Left NO GROWTH AFTER 1 DAY Anaerobic Blood Culture - Preliminary NO GROWTH AFTER 1 DAY 05/07/21 13:45 Urine Culture - Final Urine, Clean Catch NO GROWTH AFTER 2 DAYS Med Orders - Current: Current Medications Acetaminophen (Acetaminophen 325 Mg Tab) 650 mg PO Q4H PRN PRN Reason: Pain (Mild 1-3)/fever Last Admin: 05/09/21 21:02 Dose: 650 mg Documented by: Hydrocodone Bitart/Acetaminophen (Acetaminophen/Hydrocodone 325-10 Mg Tab) 0.5 tab PO Q4H PRN PRN Reason: Pain (moderate 4-6) Albuterol/Ipratropium (Albuterol/Ipratropium 3.0-0.5 Mg/3 Ml Neb Soln) 3 ml NEB Q4H PRN PRN Reason: shortness of breath/wheezing Benzonatate (Benzonatate 100 Mg Cap) 100 mg PO Q8H PRN PRN Reason: Cough, use first Dexamethasone (Dexamethasone 2 Mg Tab) 6 mg PO DAILY [facility] Stop: 05/17/21 09:01 Last Admin: 05/09/21 10:06 Dose: 6 mg Documented by: Dextrose/Water (50% Dextrose In Water 50 Ml Syringe) 50 ml IVPUSH Q15M PRN PRN Reason: Hypoglycemia Enoxaparin Sodium (Enoxaparin 40 Mg/0.4 Ml Syringe) 40 mg SUBCUT DAILY [facility] Last Admin: 05/09/21 10:07 Dose: 40 mg Documented by: Glucagon (Glucagon,Human Recombinant 1 Mg Vial) 1 mg IM Q15M PRN PRN Reason: Hypoglycemia Guaifenesin/Phenylephrine HCl (Guaifenesin/Dextromethorphan 100-10 Mg/5 Ml Soln 5 Ml Cup) 10 ml PO Q6H PRN PRN Reason: Cough, use second Hydromorphone HCl (Hydromorphone 0.5 Mg/0.5 Ml Syringe) 0.5 mg IVPUSH Q2H PRN PRN Reason: Pain (severe 7-10) Levofloxacin/Dextrose 750 mg/ (Premix) 150 mls @ 100 mls/hr IV Q24H [facility] Last Infusion: 05/09/21 14:10 Dose: Infused Documented by: Insulin Human Lispro (Insulin Lispro 100 Units/Ml 3 Ml Vial) 0 unit SUBCUT TIDMEALS PRN; Protocol PRN Reason: Hyperglycemia Ondansetron HCl (Ondansetron 4 Mg/2 Ml Sdv) 4 mg IVPUSH Q6H PRN PRN Reason: Nausea/Vomiting, use first Polyethylene Glycol (Polyethylene Glycol 3350 Powder 17 Gm Packet) 17 gm PO DAILY PRN PRN Reason: Constipation, USE FIRST Promethazine HCl (Promethazine 25 Mg/Ml Sdv) 12.5 mg IM Q6H PRN PRN Reason: Nausea/Vomiting, use second Senna/Docusate Sodium (Docusate Sodium/Sennosides 50-8.6 Mg Tab) 1 tab PO BEDTIME PRN PRN Reason: Constipation Zolpidem Tartrate (Zolpidem 5 Mg Tab) 5 mg PO BEDTIME PRN PRN Reason: Sleep Last Admin: 05/09/21 21:04 Dose: 5 mg Documented by: Discontinued Medications Dexamethasone (Dexamethasone 4 Mg/Ml Sdv) 6 mg IVPUSH ONETIME ONE Stop: 05/07/21 12:01 Last Admin: 05/07/21 12:52 Dose: 6 mg Documented by: - Exam Quality Assessment: Supplemental Oxygen, DVT Prophylaxis. No: Urine Catheter, Skin Breakdown General: Alert, Oriented, Cooperative, No Acute Distress HEENT: Pupils Equal, Pupils Reactive, EOMI, Mucous Membr. Moist/[place] Neck: Supple Lungs: Normal Respiratory Effort, Decreased Breath Sounds Cardiovascular: Regular Rate, Regular Rhythm GI/Abdominal Exam: Normal Bowel Sounds, Soft, Non-Tender, No Organomegaly, No Distention, No Abnormal Bruit, No Mass (Male) Exam: Deferred Back Exam: Normal Inspection, Decreased Range of Motion Extremities: Normal Inspection, Normal Range of Motion, Non-Tender, No Pedal Edema, Normal Capillary Refill Peripheral Pulses: 2+: Dorsalis Pedis (L), Dorsalis Pedis (R) Skin: Warm, Dry, Intact Neurological: No New Focal Deficit Psy/Mental Status: Alert, Normal Affect, Normal Mood - Patient Data Lab Results Last 24 hrs: Laboratory Results - last 24 hr 05/09/21 05/09/21 05/09/21 Range/Units 06:35 06:35 06:35 WBC 20.5 H (5.0-10.0) 10^3/uL RBC 4.96 (4.6-6.2) 10^6/uL Hgb 14.8 (14.0-18.0) g/dL Hct 43.7 (40.0-54.0) % MCV 88.1 (80-100) fL MCH 29.8 (27.0-34.0) pg MCHC 33.9 (33.0-35.0) g/dL Plt Count 222 (150-450) 10^3/uL Neut % (Auto) 83.7 H (42.2-75.2) % Lymph % (Auto) 9.4 L (20.5-50.1) % [place]field % (Auto) 6.8 (2-8) % Eos % (Auto) 0.0 L (1.0-3.0) % Baso % (Auto) 0.1 (0.0-1.0) % D-Dimer, Quantitative 775 H (0-400) ng/mL Sodium 139 (136-145) mmol/L Potassium 4.2 (3.5-5.1) mmol/L Chloride 103 (98-107) mmol/L Carbon Dioxide 26 (21-32) mmol/L Anion Gap 14.2 H (7-13) mEq/L BUN 14 (7-18) mg/dL Creatinine 0.76 (0.70-1.30) mg/dL Est Cr Clr Drug Dosing 117.17 mL/min Estimated GFR (MDRD) > 60 Glucose 117 H (70-99) mg/dL POC Glucose (70-99) mg/dL Calcium 9.1 (8.5-10.1) mg/dL Magnesium 1.9 (1.8-2.4) mg/dL Ferritin (26-388) mg/mL C-Reactive Protein 10.1 H (0.0-0.9) mg/dL 05/09/21 05/09/21 05/09/21 Range/Units 06:35 07:30 12:01 WBC (5.0-10.0) 10^3/uL RBC (4.6-6.2) 10^6/uL Hgb (14.0-18.0) g/dL Hct (40.0-54.0) % MCV (80-100) fL MCH (27.0-34.0) pg MCHC (33.0-35.0) g/dL Plt Count (150-450) 10^3/uL Neut % (Auto) (42.2-75.2) % Lymph % (Auto) (20.5-50.1) % [place]field % (Auto) (2-8) % Eos % (Auto) (1.0-3.0) % Baso % (Auto) (0.0-1.0) % D-Dimer, Quantitative (0-400) ng/mL Sodium (136-145) mmol/L Potassium (3.5-5.1) mmol/L Chloride (98-107) mmol/L Carbon Dioxide (21-32) mmol/L Anion Gap (7-13) mEq/L BUN (7-18) mg/dL Creatinine (0.70-1.30) mg/dL Est Cr Clr Drug Dosing mL/min Estimated GFR (MDRD) Glucose (70-99) mg/dL POC Glucose 112 H 129 H (70-99) mg/dL Calcium (8.5-10.1) mg/dL Magnesium (1.8-2.4) mg/dL Ferritin 1311 H (26-388) mg/mL C-Reactive Protein (0.0-0.9) mg/dL 05/09/21 Range/Units 16:42 WBC (5.0-10.0) 10^3/uL RBC (4.6-6.2) 10^6/uL Hgb (14.0-18.0) g/dL Hct (40.0-54.0) % MCV (80-100) fL MCH (27.0-34.0) pg MCHC (33.0-35.0) g/dL Plt Count (150-450) 10^3/uL Neut % (Auto) (42.2-75.2) % Lymph % (Auto) (20.5-50.1) % [place] % (Auto) (2-8) % Eos % (Auto) (1.0-3.0) % Baso % (Auto) (0.0-1.0) % D-Dimer, Quantitative (0-400) ng/mL Sodium (136-145) mmol/L Potassium (3.5-5.1) mmol/L Chloride (98-107) mmol/L Carbon Dioxide (21-32) mmol/L Anion Gap (7-13) mEq/L BUN (7-18) mg/dL Creatinine (0.70-1.30) mg/dL Est Cr Clr Drug Dosing mL/min Estimated GFR (MDRD) Glucose (70-99) mg/dL POC Glucose 132 H (70-99) mg/dL Calcium (8.5-10.1) mg/dL Magnesium (1.8-2.4) mg/dL Ferritin (26-388) mg/mL C-Reactive Protein (0.0-0.9) mg/dL Result Diagrams: 05/10/21 06:10 05/10/21 06:10 [place] Results Last 24 hrs: Microbiology 05/09/21 06:35 Aerobic Blood Culture - Preliminary Blood - Arm, Right NO GROWTH AFTER 1 DAY Anaerobic Blood Culture - Preliminary NO GROWTH AFTER 1 DAY 05/09/21 06:35 Aerobic Blood Culture - Preliminary Blood - Arm, Left NO GROWTH AFTER 1 DAY Anaerobic Blood Culture - Preliminary NO GROWTH AFTER 1 DAY 05/07/21 13:45 Urine Culture - Final Urine, Clean Catch NO GROWTH AFTER 2 DAYS Sepsis Event Note - Evaluation Sepsis Screening Result: No Definite Risk - Focused Exam Vital Signs: Vital Signs Temp Pulse Resp BP Pulse Ox 05/10/21 04:00 36.5 C 61 18 123/85 98 05/10/21 00:00 35.3 C L 73 18 123/79 99 05/09/21 20:00 36.7 C 69 18 127/81 98 - Problem List Review Problem List Initiated/Reviewed/Updated: Yes - My Orders Last 24 Hours: My Active Orders 05/09/21 06:35 CULTURE BLOOD [BC] Routine CULTURE BLOOD [BC] Routine 05/09/21 09:00 Enoxaparin [Lovenox] 40 mg SUBCUT DAILY 05/10/21 06:10 BASIC METABOLIC PANEL,BMP [CHEM] AM C-REACTIVE PROTEIN [CHEM] Routine CBC WITH AUTO DIFF [HEME] AM MAGNESIUM [CHEM] AM 05/11/21 05:00 C-REACTIVE PROTEIN [REF] DAILY 05/11/21 05:11 BASIC METABOLIC PANEL,BMP [CHEM] AM CBC WITH AUTO DIFF [HEME] AM MAGNESIUM [CHEM] AM 05/12/21 05:00 C-REACTIVE PROTEIN [REF] DAILY 05/12/21 05:11 BASIC METABOLIC PANEL,BMP [CHEM] AM CBC WITH AUTO DIFF [HEME] AM MAGNESIUM [CHEM] AM 05/13/21 05:00 C-REACTIVE PROTEIN [REF] DAILY 05/13/21 05:11 BASIC METABOLIC PANEL,BMP [CHEM] AM CBC WITH AUTO DIFF [HEME] AM MAGNESIUM [CHEM] AM 05/14/21 05:00 C-REACTIVE PROTEIN [REF] DAILY 05/14/21 05:11 BASIC METABOLIC PANEL,BMP [CHEM] AM CBC WITH AUTO DIFF [HEME] AM MAGNESIUM [CHEM] AM - Assessment Assessment:: This is a 45-year-old with no significant past medical history except for insomnia who comes in as a direct admit after he was diagnosed with bacteremia from yesterday's visit in the emergency department. Assessment: Acute: Worsening COVID-19 infection; onset of symptoms 04/22/2001/04/2021; officially diagnosed with COVID-19 on 04/26/2021 Viral pneumonitis versus atypical pneumonia; chest x-ray shows bilateral pneumonia taken yesterday in ED; repeat chest x-ray 05/08/2021 shows no worsening of pneumonia Bacteremia with preliminary blood culture showing gram-positive organism; repeat blood culture so far is negative after 24 hours Leukocytosis with WBC as high as 26.2 with neutrophils count of 86.1; continues to improve now with WBC of 19.7 Hyperglycemia with glucose of 111, carries no history of diabetes or glucose intolerance; now in the low 100s Elevated CRP of 44.2, yesterday 24.7; continues to improve now at 4.2 Resolved: Intermittent fever and chills likely related to COVID-19 infection Lactic acidosis with initial lactic acid of 2.4 taken taken in ED yesterday Hypomagnesemia with magnesium of 1.7 taken in ED yesterday General aches and malaise Chronic: Insomnia - Plan Plan:: Plan: Continue current treatment with IV 750 mg Levaquin day #4 Continue routine a.m. labs and inflammatory markers Monitor for electrolytes abnormality Electrolyte replacement protocol Flutter valve and incentive spirometry as directed As needed decongestant/Atrovent Accu-Check AC with insulin sliding scale for hyperglycemia due to steroid use Regular diet RT to assess and treat DVT prophylaxis: Lovenox 40 mg subcu daily GI prophylaxis: H2 camron Goal of treatment: Resolution of bacteremia Discharge plan: Discharge if repeat blood culture tomorrow remains negative Prognosis remains good Length of stay: Likely 96 hours (Friday)
[2021-05-10 07:17] LABS: CHLORIDE,CL 102 mmol/L (98-107); SODIUM,NA 138 mmol/L (136-145)
[2021-05-10] MEDS: Dexamethasone 2 MG Tab PO SCH (08:11)
[2021-05-10] MEDS: Enoxaparin 40 MG/0.4 ML Syringe SUBCUT SCH (08:12)
[2021-05-10] MEDS: Levofloxacin/Dextrose 5%-Water 750 MG in Premix Bag 1 BAG IV SCH (12:36)
[2021-05-10] MEDS: Acetaminophen 325 MG Tab PO PRN (21:58)
[2021-05-10] MEDS: Zolpidem 5 MG Tab PO PRN (21:58)
[2021-05-11 06:58] LABS: ANION GAP 10.2 mEq/L (7-13); CHLORIDE,CL 100 mmol/L (98-107); SODIUM,NA 135 mmol/L (136-145)
--- NOTE | 2021-05-11 07:16 | PCM.DCSUM1 ---
Discharge Summary - Hospital Course Brief History: This is a 45-year-old with no significant past medical history except for insomnia who comes in as a direct admit after he was diagnosed with bacteremia on 05/06/2021 from the emergency department. Diagnosis: Stroke: No - Discharge Data Discharge Date: 05/11/21 Discharge Disposition: Home, Self-Care 01 Condition: Good - Referral to Home Health Primary Care Physician: Tasneem Cohen NP - Patient Summary/Data Operative Procedure(s) Performed: None Complications: None Consults: Consultations 05/07/21 10:48 Consult to Case Management/[employer] [CONS] Routine Respiratory Care Assess and Treatment [CONS] Routine Labs Pending at D/C: None Recommended Follow-up Testing/Procedures: None Planned Operative Procedure(s) after DC: None Hospital Course: Patient was primarily admitted for bacteremia likely due to community acquired pneumonia superimposed by COVID-19 infection/pneumonitis. His initial blood culture obtained in the emergency department grew a gram-positive organism. Hence, he was called back to be admitted to the hospital for treatment. He received intravenous levaquin as well as dexamethasone and completed a 5-day course of both medications. His repeat blood cultures grew no organisms. Patient has done very well since admission. His hospital course has been uncomplicated and is now deemed stable for discharge. He will be prescribed with additional steroid pills to complete a total of 10-day treatment. The patient is expected to recover from COVID-19 infection. He is to remain in isolation and to quarantine himself per protocol with lingering respiratory symptoms. He is to follow-up with primary care provider next week. On the day of discharge, the patient was advised to continue his home antibiotics that were initially prescribed to him outpatient and to come back and or seek immediate care at the nearest medical facility should his symptoms persist or get worse. - Patient Instructions Diet: Usual Diet as Tolerated Activity: As Tolerated Driving: Do Not Drive Showering/Bathing: May Shower Notify Provider of: Fever, Increased Pain, Nausea and/or Vomiting Other/Special Instructions: Please take your medication as directed. Resume outpatient antibiotics that were initially prescribed in the emergency department. Continue to use flutter valve and incentive spirometry for at least a week. As for activities, continue as tolerated. You should remain in isolation and practice quarantine protocol. And most importantly, follow-up with primary care provider next week. - Discharge Plan *PRESCRIPTION DRUG MONITORING PROGRAM REVIEWED*: Not Applicable *COPY OF PRESCRIPTION DRUG MONITORING REPORT IN PATIENT SUSHMA: Not Applicable Prescriptions/Med Rec: dexAMETHasone [Decadron] 6 mg PO DAILY #5 tablet Home Medications: Home Meds Zolpidem [Ambien] 10 mg PO BEDTIME PRN 02/25/14 [History] Amoxicillin/Potassium Clav [Augmentin 875-125 Tablet] 1 tab PO BID 05/07/21 [History] Azithromycin [Zithromax] 250 mg PO DAILY 05/07/21 [History] dexAMETHasone [Decadron] 6 mg PO DAILY #5 tablet 05/11/21 [Rx] Patient Handouts: COVID-19, Bacteremia, Adult, Community-Acquired Pneumonia, Adult, [id number] Referrals: Tasneem Cohen, PATIENT COMPANION [Primary Care Provider] - - Discharge Summary/Plan Comment DC Time >30 min.: No Total # of Minutes for Discharge Time: 15 mins Discharge Summary/Plan Comment: Discharge to Home - General Info Date of Service: 05/11/21 Admission Dx/Problem (Free Text: COVID-19 infection Subjective Update: No overnight or acute issues. He is doing relatively well. He is eager to go home today. He has no complaints this morning. He would like to go back to work on 21 of May with a doctor's note. Functional Status: Reports: Pain Controlled, Tolerating Diet, Ambulating, Urinating, Incentive Spirometry. Denies: New Symptoms - Review of Systems General: Denies: Fever, Weakness, Fatigue, Malaise HEENT: Denies: Contact Lenses Pulmonary: Reports: Cough, Sputum. Denies: Shortness of Breath, Pleuritic Chest Pain, Hemoptysis, Wheezing Cardiovascular: Denies: Chest Pain, Dyspnea on Exertion, Lightheadedness Gastrointestinal: Denies: Abdominal Pain, Constipation, Diarrhea, Nausea, Vomiting Genitourinary: Denies: Dysuria, Frequency, Burning, Pain, Urgency Musculoskeletal: Denies: Neck Pain, Back Pain, Leg Pain, Joint Pain Skin: Denies: Bruising, Pruritis, Rash, Other Neurological: Denies: Seizure, Syncope, Difficulty Walking, Weakness, Gait Disturbance Psychiatric: Denies: Confusion, Depression, Anxiety, Agitation, Hallucinations, Suicidal Ideation, Homicidal Ideation - Patient Data Vitals - Most Recent: Last Vital Signs Temp 36.6 C 05/11/21 04:00 Pulse 66 05/11/21 04:00 Resp 18 05/11/21 04:00 BP 106/74 05/11/21 04:00 Pulse Ox 98 05/11/21 04:00 Weight - Most Recent: 80.286 kg I&O - Last 24 hours: Intake & Output 05/10/21 05/11/21 05/11/21 22:59 06:59 14:59 Intake Total 1160 400 Balance 1160 400 Lab Results - Last 24 hrs: Laboratory Results - last 24 hr 05/10/21 05/10/21 05/10/21 Range/Units 06:10 06:10 07:30 WBC 19.7 H (5.0-10.0) 10^3/uL RBC 4.99 (4.6-6.2) 10^6/uL Hgb 15.0 (14.0-18.0) g/dL Hct 44.2 (40.0-54.0) % MCV 88.6 (80-100) fL MCH 30.1 (27.0-34.0) pg MCHC 33.9 (33.0-35.0) g/dL Plt Count 253 (150-450) 10^3/uL Neut % (Auto) 79.4 H (42.2-75.2) % Lymph % (Auto) 12.9 L (20.5-50.1) % [place] % (Auto) 7.5 (2-8) % Eos % (Auto) 0.1 L (1.0-3.0) % Baso % (Auto) 0.1 (0.0-1.0) % Add Manual Diff Yes Neutrophils % (Manual) 65 (42-75) % Band Neutrophils % 11 % Lymphocytes % (Manual) 15 L (20-50) % Monocytes % (Manual) 7 (2-8) % Myelocytes % 2 Sodium 138 (136-145) mmol/L Potassium 4.0 (3.5-5.1) mmol/L Chloride 102 (98-107) mmol/L Carbon Dioxide 27 (21-32) mmol/L Anion Gap 13.0 (7-13) mEq/L BUN 16 (7-18) mg/dL Creatinine 0.74 (0.70-1.30) mg/dL Est Cr Clr Drug Dosing 120.34 mL/min Estimated GFR (MDRD) > 60 Glucose 97 (70-99) mg/dL POC Glucose 100 H (70-99) mg/dL Calcium 8.9 (8.5-10.1) mg/dL Magnesium 2.1 (1.8-2.4) mg/dL C-Reactive Protein 4.2 H (0.0-0.9) mg/dL 05/10/21 05/10/21 05/11/21 Range/Units 11:54 16:14 06:15 WBC 19.1 H (5.0-10.0) 10^3/uL RBC 5.21 (4.6-6.2) 10^6/uL Hgb 15.5 (14.0-18.0) g/dL Hct 45.8 (40.0-54.0) % MCV 87.9 (80-100) fL MCH 29.8 (27.0-34.0) pg MCHC 33.8 (33.0-35.0) g/dL Plt Count 260 (150-450) 10^3/uL Neut % (Auto) 71.2 (42.2-75.2) % Lymph % (Auto) 16.4 L (20.5-50.1) % [place] % (Auto) 12.1 H (2-8) % Eos % (Auto) 0.2 L (1.0-3.0) % Baso % (Auto) 0.1 (0.0-1.0) % Add Manual Diff Neutrophils % (Manual) (42-75) % Band Neutrophils % % Lymphocytes % (Manual) (20-50) % Monocytes % (Manual) (2-8) % Myelocytes % Sodium (136-145) mmol/L Potassium (3.5-5.1) mmol/L Chloride (98-107) mmol/L Carbon Dioxide (21-32) mmol/L Anion Gap (7-13) mEq/L BUN (7-18) mg/dL Creatinine (0.70-1.30) mg/dL Est Cr Clr Drug Dosing mL/min Estimated GFR (MDRD) Glucose (70-99) mg/dL POC Glucose 136 H 154 H (70-99) mg/dL Calcium (8.5-10.1) mg/dL Magnesium (1.8-2.4) mg/dL C-Reactive Protein (0.0-0.9) mg/dL 05/11/21 Range/Units 06:15 WBC (5.0-10.0) 10^3/uL RBC (4.6-6.2) 10^6/uL Hgb (14.0-18.0) g/dL Hct (40.0-54.0) % MCV (80-100) fL MCH (27.0-34.0) pg MCHC (33.0-35.0) g/dL Plt Count (150-450) 10^3/uL Neut % (Auto) (42.2-75.2) % Lymph % (Auto) (20.5-50.1) % [place] % (Auto) (2-8) % Eos % (Auto) (1.0-3.0) % Baso % (Auto) (0.0-1.0) % Add Manual Diff Neutrophils % (Manual) (42-75) % Band Neutrophils % % Lymphocytes % (Manual) (20-50) % Monocytes % (Manual) (2-8) % Myelocytes % Sodium 135 L (136-145) mmol/L Potassium 4.2 (3.5-5.1) mmol/L Chloride 100 (98-107) mmol/L Carbon Dioxide 29 (21-32) mmol/L Anion Gap 10.2 (7-13) mEq/L BUN 20 H (7-18) mg/dL Creatinine 0.94 (0.70-1.30) mg/dL Est Cr Clr Drug Dosing 94.74 mL/min Estimated GFR (MDRD) > 60 Glucose 91 (70-99) mg/dL POC Glucose (70-99) mg/dL Calcium 9.1 (8.5-10.1) mg/dL Magnesium 2.3 (1.8-2.4) mg/dL C-Reactive Protein 1.7 H (0.0-0.9) mg/dL REBECCA Results - Last 24 hrs: Microbiology 05/09/21 06:35 Aerobic Blood Culture - Preliminary Blood - Arm, Right NO GROWTH AFTER 2 DAYS Anaerobic Blood Culture - Preliminary NO GROWTH AFTER 2 DAYS 05/09/21 06:35 Aerobic Blood Culture - Preliminary Blood - Arm, Left NO GROWTH AFTER 2 DAYS Anaerobic Blood Culture - Preliminary NO GROWTH AFTER 2 DAYS Med Orders - Current: Current Medications Acetaminophen (Acetaminophen 325 Mg Tab) 650 mg PO Q4H PRN PRN Reason: Pain (Mild 1-3)/fever Last Admin: 05/10/21 21:58 Dose: 650 mg Documented by: Hydrocodone Bitart/Acetaminophen (Acetaminophen/Hydrocodone 325-10 Mg Tab) 0.5 tab PO Q4H PRN PRN Reason: Pain (moderate 4-6) Albuterol/Ipratropium (Albuterol/Ipratropium 3.0-0.5 Mg/3 Ml Neb Soln) 3 ml NEB Q4H PRN PRN Reason: shortness of breath/wheezing Benzonatate (Benzonatate 100 Mg Cap) 100 mg PO Q8H PRN PRN Reason: Cough, use first Dexamethasone (Dexamethasone 2 Mg Tab) 6 mg PO DAILY [facility] Stop: 05/17/21 09:01 Last Admin: 05/10/21 08:11 Dose: 6 mg Documented by: Dextrose/Water (50% Dextrose In Water 50 Ml Syringe) 50 ml IVPUSH Q15M PRN PRN Reason: Hypoglycemia Enoxaparin Sodium (Enoxaparin 40 Mg/0.4 Ml Syringe) 40 mg SUBCUT DAILY [facility] Last Admin: 05/10/21 08:12 Dose: 40 mg Documented by: Glucagon (Glucagon,Human Recombinant 1 Mg Vial) 1 mg IM Q15M PRN PRN Reason: Hypoglycemia Guaifenesin/Phenylephrine HCl (Guaifenesin/Dextromethorphan 100-10 Mg/5 Ml Soln 5 Ml Cup) 10 ml PO Q6H PRN PRN Reason: Cough, use second Hydromorphone HCl (Hydromorphone 0.5 Mg/0.5 Ml Syringe) 0.5 mg IVPUSH Q2H PRN PRN Reason: Pain (severe 7-10) Levofloxacin/Dextrose 750 mg/ (Premix) 150 mls @ 100 mls/hr IV Q24H [facility] Last Infusion: 05/10/21 14:15 Dose: Infused Documented by: Insulin Human Lispro (Insulin Lispro 100 Units/Ml 3 Ml Vial) 0 unit SUBCUT TIDMEALS PRN; Protocol PRN Reason: Hyperglycemia Ondansetron HCl (Ondansetron 4 Mg/2 Ml Sdv) 4 mg IVPUSH Q6H PRN PRN Reason: Nausea/Vomiting, use first Polyethylene Glycol (Polyethylene Glycol 3350 Powder 17 Gm Packet) 17 gm PO DAILY PRN PRN Reason: Constipation, USE FIRST Promethazine HCl (Promethazine 25 Mg/Ml Sdv) 12.5 mg IM Q6H PRN PRN Reason: Nausea/Vomiting, use second Senna/Docusate Sodium (Docusate Sodium/Sennosides 50-8.6 Mg Tab) 1 tab PO BEDTIME PRN PRN Reason: Constipation Zolpidem Tartrate (Zolpidem 5 Mg Tab) 5 mg PO BEDTIME PRN PRN Reason: Sleep Last Admin: 05/10/21 21:58 Dose: 5 mg Documented by: Discontinued Medications Dexamethasone (Dexamethasone 4 Mg/Ml Sdv) 6 mg IVPUSH ONETIME ONE Stop: 05/07/21 12:01 Last Admin: 05/07/21 12:52 Dose: 6 mg Documented by: - Exam Quality Assessment: Reports: DVT Prophylaxis. Denies: Supplemental Oxygen, Urine Catheter, Skin Breakdown General: Reports: Alert, Oriented, Cooperative, No Acute Distress HEENT: Reports: Pupils Equal, Pupils Reactive, EOMI, Mucous Membr. Moist/[place] Neck: Reports: Supple Lungs: Reports: Clear to Auscultation, Normal Respiratory Effort Cardiovascular: Reports: Regular Rate, Regular Rhythm GI/Abdominal Exam: Normal Bowel Sounds, Soft, Non-Tender, No Organomegaly, No Distention, No Abnormal Bruit, No Mass, Pelvis Stable (Male) Exam: Deferred Rectal (Males) Exam: Deferred Back Exam: Reports: Normal Inspection, Full Range of Motion Extremities: Normal Inspection, Normal Range of Motion, Non-Tender, No Pedal Edema, Normal Capillary Refill Skin: Reports: Warm, Dry, Intact Neurological: Reports: No New Focal Deficit Psy/Mental Status: Reports: Alert, Normal Affect, Normal Mood
[2021-05-11] MEDS ORDERED: Levofloxacin/Dextrose 5%-Water 750 MG in Premix Bag 1 BAG IV SCH (08:00)
[2021-05-11] MEDS: Dexamethasone 2 MG Tab PO SCH (08:04)
[2021-05-11] MEDS: Enoxaparin 40 MG/0.4 ML Syringe SUBCUT SCH (08:06)
[2021-05-11 08:43] VITALS: BP 120/81; PULSE 63
--- NOTE | 2021-05-11 09:47 | CR ---
PROCEDURE INFORMATION: Exam: XR Chest Exam date and time: 05/11/2021 9:04 AM Age: 45 years old Clinical indication: Condition or disease; Other: Covid; Additional info: Covid-19 TECHNIQUE: Imaging protocol: XR of the chest. Views: 1 view. COMPARISON: CR Chest 1V Frontal 05/08/2021 8:04 AM FINDINGS: Lungs: Bilateral subsegmental atelectasis is mildly decreased. Left lower lobe/retrocardiac airspace opacification is resolved, also indicating resolved atelectasis. The lungs are otherwise clear. Pleural spaces: Normal. Heart/Mediastinum: Normal heart and cardio-mediastinal silhouette. Vasculature: Normal pulmonary vessels and width of the vascular pedicle. Bones/joints: Intact and normally aligned. No suspicious lesion. IMPRESSION: Decreased but incompletely resolved atelectasis. There are no findings suspicious for pneumonia on today study.
== END 2021-05-11 11:10 | disposition home or self-care (01) | DRG 137 ==
LOC: DL.MS 10:18
PROVIDERS: ADMIT Internal Medicine; ATTEND Internal Medicine
PROC: 3E0333Z Introduction of Anti-inflammatory into Peripheral Vein, Percutaneous Approach (ICD-10-PCS; principal; 2021-05-07)
PROC: 3E0DX3Z Introduction of Anti-inflammatory into Mouth and Pharynx, External Approach (ICD-10-PCS; 2021-05-07)
DX: U07.1 COVID-19 (principal); J12.82 Pneumonia due to coronavirus disease 2019; G47.00 Insomnia, unspecified; E83.42 Hypomagnesemia; R73.9 Hyperglycemia, unspecified; Z79.899 Other long term (current) drug therapy
CPT/HCPCS: 36415; 71045; 80048; 82728; 82947; 83615; 83735; 85025; 85379; 85651; 86140; 86480; 87040; 87086; A9270-GY; J1100; J1650; J1956; J8540